=== PATIENT | female | born 1965 | race Two or more races ===

== ENCOUNTER 2020-06-06 11:45 | Inpatient (IN) | payer OTHER ==
[~2020-06-06] VITALS: Ht 160 cm; Wt 64.4 kg
== END 2020-06-09 12:52 | disposition home or self-care (01) | DRG 743 ==
LOC: OB/GYN 06-07 05:50 → O/R 06-07 05:50 → SURH 06-07 12:45 → OB/GYN 06-07 13:27
PROVIDERS: ADMIT Specialist; ATTEND Specialist
PROC: 0UB77ZZ Excision of Bilateral Fallopian Tubes, Via Natural or Artificial Opening (ICD-10-PCS; 2020-06-07)
PROC: 0UB27ZZ Excision of Bilateral Ovaries, Via Natural or Artificial Opening (ICD-10-PCS; 2020-06-07)
PROC: 0UT97ZZ Resection of Uterus, Via Natural or Artificial Opening (ICD-10-PCS; principal; 2020-06-07 12:15)
DX: D25.1 Intramural leiomyoma of uterus (principal); N83.8 Other noninflammatory disorders of ovary, fallopian tube and broad ligament; C54.1 Malignant neoplasm of endometrium